=== PATIENT | female | born 1935 | race Caucasian/White ===

== ENCOUNTER → 2017-04-28 | Outpatient (CLI) | payer MEDICARE ==
[~2017-04-28] MED LIST: CALC600T34 PO; EVIS60TA PO; LANO0.2510 PO; SIMV5TAB32; ST J81CH PO; SYNT75TA PO; TAB-TAB; VITA400C28 PO; cardizem PO
--- NOTE | 2017-05-03 08:37 | RSPPFT ---
DATE OF PROCEDURE: 04/28/17 COMMENTS: VOLUMES DYNAMIC: FVC and FEV1 normal. STATIC: FRC, RV and TLC normal. FLOWS: FEV1% and FEF 25-75 normal. DIFFUSION: Moderately reduced. FLOW VOLUME LOOP: Normal configuration. IMPRESSION: Essentially normal pulmonary functions with normal volumes, normal flows. No significant improvement post-bronchodilator. The reduction in diffusion is mild to moderate and of uncertain significance. Clinical correlation is required.
== END ==
LOC: HRSP 10:55
PROVIDERS: ATTEND Internal Medicine
DX: J44.9 Chronic obstructive pulmonary disease, unspecified (principal)
CPT/HCPCS: 94060; 94620; 94726; 94729

== ENCOUNTER → 2017-07-13 | Outpatient (CLI) | payer MEDICARE ==
[2017-07-13 12:14] LABS: FREE T4 1.43 NG/DL (0.76-1.46)
== END ==
LOC: ELAB 08:36
DX: E03.9 Hypothyroidism, unspecified (principal)
CPT/HCPCS: 36415; 84439; 84443